=== PATIENT | female | born 1980 | race Caucasian/White ===

== ENCOUNTER 2017-06-15 13:32 | Emergency (ER) | payer OTHER ==
[~2017-06-15] VITALS: Ht 149.9 cm; Wt 47.6 kg
[~2017-06-15 13:32] MED LIST: ALEVE220 M1 PO; CYCLOBENZAPRINE10 MG PO; DOXYCYCLINE HY100 MG PO; IBUPROFEN600 MG PO; IBUPROFEN800 MG PO; KEFLEX500 MG PO; MACRODANTIN100 MG PO; NAPROXEN500 MG PO; NORCO 5-325 TA1 EACH PO; PEPCID20 MG PO; PERCOCET 5-3251 EACH PO; PROCHLORPERAZIN10 MG PO; PROMETHAZINE HC25 M1 PO; PROMETHAZINE-COD5 ML PO; TRAMADOL HCL50 MG PO; TRAZODONE HCL50 MG PO; ULTRAM50 MG PO; VISTARIL50 MG PO; ZOFRAN ODT4 MG PO; ZOFRAN ODT4 MG SL; ZOFRAN4 MG PO; ZOLOFT100 MG PO; ZOLOFT50 MG PO
== END 2017-06-15 13:48 | disposition home or self-care (01) ==
LOC: ED 13:32
DX: Z00.8 Encounter for other general examination (principal)

== ENCOUNTER 2017-12-11 14:22 | Emergency (ER) | payer OTHER ==
[~2017-12-11] VITALS: Ht 149.9 cm; Wt 47.6 kg
[2017-12-11] MEDS ORDERED: ALEVE220 MG PO (14:35)
--- OUTSIDE RECORDS SUMMARY | 2017-12-11 15:27 | XMS ---
Demographics + + + | Address | [address] | | | [address] | | | [place] [address] | + + + | Preferred Language | Unknown | + + + | Marital Status | Unknown | + + + | Holiness Affiliation | Unknown | + + + | Race | Unknown | + + + | Ethnic Group | Unknown | + + + Author + + + | Author | [facility] | + + + | Organization | [facility] | + + + | Address | [address] | | | [place] [address] | + + + | Phone | | + + + Care Team Providers + + + + | Care Human Resources Compliance Manager Name | Role | Phone | + + + + Unavailable | Unavailable | + + + + PROBLEMS +---------+ + + +--------+ + + | Type | Condition | ICD9-CM | [id number] | Onset | Condition | SNOMED | | | | Code | Code | Dates | Status | Code | +---------+ + + +--------+ + + | Problem | Paresthesi | R20.2 | | | Active | [id number] | | | as in left | | | | | | | | hand | | | | | | +---------+ + + +--------+ + + | Problem | Tobacco | | Z72.0 | | Active | 84542413 | | | abuse | | | | | | +---------+ + + +--------+ + + | Problem | Marijuana | F12.20 | | | Active | | | | dependence | | | | | | +---------+ + + +--------+ + + | Problem | Left | M77.12 | | | Active | [id number] | | | lateral | | | | | [address]93[address] | | | epicondyli | | | | | | | | tis | | | | | | +---------+ + + +--------+ + + | Problem | Bursitis | | M75.52 | | Active | [id number] | | | of | | | | | [address] | | | shoulder, | | | | | | | | left | | | | | | +---------+ + + +--------+ + + | Problem | Intractabl | M79.671 | | | Active | 24204964 | | | e right | | | | | | | | heel pain | | | | | | +---------+ + + +--------+ + + | Problem | Dyslipidem | E78.5 | | | Active | [id number] | | | ia | | | | | | +---------+ + + +--------+ + + | Problem | H/O bee | Z91.030 | | | Active | | | | sting | | | | | | | | allergy | | | | | | +---------+ + + +--------+ + + | Problem | Depression | | F41.8 | | Active | [id number] | | | with | | | | | | | | anxiety | | | | | | +---------+ + + +--------+ + + | Problem | Chronic | | G89.4 | | Active | 938512370 | | | pain | | | | | | | | syndrome | | | | | | +---------+ + + +--------+ + + | Problem | Fracture | S92.001G | | | Active | | | | of right | | | | | | | | calcaneus | | | | | | | | with | | | | | | | | delayed | | | | | | | | healing | | | | | | +---------+ + + +--------+ + + ALLERGIES + + + + +--------+ | Substance | Reaction | Event Type | Date | Status | + + + + +--------+ | Penicillin | swelling | Drug Allergy | May, | Active | + + + + +--------+ | Bee Stings | swelling | Non Drug | May, | Active | | | | Allergy | | | + + + + +--------+ SOCIAL HISTORY No smoking Hx information available PLAN OF CARE + +---------+ | Activity | Details | + +---------+ +---+ | | +---+ + + + | Follow Up | prn with your primary care provider | | | Reason:null | + + + VITAL SIGNS + + + + | Height | 59 in | 2017-06-16 | + + + + | Weight | 94.4 lbs | 2017-06-16 | + + + + | BMI | 19.06 kg/m2 | 2017-06-16 | + + + + | Temperature | 97.9 degrees Fahrenheit | 2017-06-16 | + + + + | Heart Rate | 86 /min | 2017-06-16 | + + + + | Blood pressure systolic | 99 mm Hg | 2017-06-16 | + + + + | Blood pressure diastolic | 65 mm Hg | 2017-06-16 | + + + + MEDICATIONS + + + + + + + +--------+ | Medicati | Instruct | Dosage | Frequenc | Start | End Date | Duration | Status | | on | ions | | y | Date | | | | + + + + + + + +--------+ | Aleve | | | | | | | Active | + + + + + + + +--------+ | Ibuprofe | Orally | 1 tablet | 8h | 29 May, | 28 Jun, | 30 | Active | | n 600 MG | Three | | | 2017 | 2017 | day(s) | | | | times a | | | | | | | | | day | | | | | | | + + + + + + + +--------+ | EpiPen | Injectio | as | | 22 Arden, | | | Active | | 2-Keny | n PRN | directed | | 2015 | | | | | 0.3 | | | | | | | | | MG/0.3ML | | | | | | | | + + + + + + + +--------+ | Sertrali | Orally | 1 tablet | 24h | May, | | 30 | Active | | ne HCl | Once a | | | 2016 | | | | | 100 mg | day | | | | | | | + + + + + + + +--------+ RESULTS No Results PROCEDURES + + + + + | Procedure | Date Ordered | Related Diagnosis | Body Site | + + + + + | Est Level III | June 16, 2017 | | | | Intermediate | | | | + + + + + IMMUNIZATIONS No Known Immunizations"
--- OUTSIDE RECORDS SUMMARY | 2017-12-11 15:28 | XMS ---
Demographics + + + | Address | [address] | | | [address] | | | [place] [address] | + + + | Preferred Language | Unknown | + + + | Marital Status | Unknown | + + + | Adventism Affiliation | Unknown | + + + | Race | Unknown | + + + | Ethnic Group | Unknown | + + + Author + + + | Author | [facility] | + + + | Organization | [facility] | + + + | Address | [address] | | | [place] [address] | + + + | Phone | | + + + Care Team Providers + + + + | Care Director Of Research Name | Role | Phone | + + + + Unavailable | Unavailable | + + + + PROBLEMS +---------+ + + +--------+ + + | Type | Condition | ICD9-CM | [id number] | Onset | Condition | SNOMED | | | | Code | Code | Dates | Status | Code | +---------+ + + +--------+ + + | Problem | Paresthesi | R20.2 | | | Active | [id number] | | | as in left | | | | | | | | hand | | | | | | +---------+ + + +--------+ + + | Problem | Tobacco | | Z72.0 | | Active | 25402781 | | | abuse | | | | | | +---------+ + + +--------+ + + | Problem | Marijuana | F12.20 | | | Active | | | | dependence | | | | | | +---------+ + + +--------+ + + | Problem | Left | M77.12 | | | Active | [id number] | | | lateral | | | | | [address] | | | epicondyli | | | | | | | | tis | | | | | | +---------+ + + +--------+ + + | Problem | Bursitis | | M75.52 | | Active | [id number] | | | of | | | | | [address] | | | shoulder, | | | | | | | | left | | | | | | +---------+ + + +--------+ + + | Problem | Intractabl | M79.671 | | | Active | 66979453 | | | e right | | | | | | | | heel pain | | | | | | +---------+ + + +--------+ + + | Problem | Dyslipidem | E78.5 | | | Active | 772715955 | | | ia | | | [...] | | F41.8 | | Active | 811200531 | | | with | | | | | | | | anxiety | | | | | | +---------+ + + +--------+ + + | Problem | Chronic | | G89.4 | | Active | [id number] | | | pain | | | [...] +---------+ + + +--------+ + + ALLERGIES Unknown Allergies SOCIAL HISTORY No smoking Hx information available PLAN OF CARE VITAL SIGNS MEDICATIONS Unknown Medications RESULTS No Results PROCEDURES No Known procedures IMMUNIZATIONS No Known Immunizations"
[2017-12-11] MEDS ORDERED: PROTONIX40 MG PO (15:30)
[2017-12-11] MEDS ORDERED: KETOROLAC TROME10 MG PO (15:30)
== END 2017-12-11 15:40 | disposition home or self-care (01) ==
LOC: ED 14:22
DX: R10.9 Unspecified abdominal pain (principal); F17.200 Nicotine dependence, unspecified, uncomplicated; Z98.51 Tubal ligation status; Z90.89 Acquired absence of other organs; Z88.0 Allergy status to penicillin; Z88.8 Allergy status to other drugs, medicaments and biological substances
CPT/HCPCS: 80053; 81001; 82150; 83690; 84703; 85025; 96374; 96375; 99283; J1885; J2405

== ENCOUNTER 2018-01-23 12:26 | Emergency (ER) | payer OTHER ==
[~2018-01-23] VITALS: Ht 149.9 cm; Wt 47.6 kg
--- OUTSIDE RECORDS SUMMARY | ~2018-01-23 | XMS ---
Demographics + + + | Address | [address] | | | [address] | | | [place] [address] | + + + | Preferred Language | Unknown | + + + | Marital Status | Unknown | + + + | Faith Affiliation | Unknown | + + + | Race | Unknown | + + + | Ethnic Group | Unknown | + + + Author + + + | Author | [facility] | + + + | Organization | [facility] | + + + | Address | [address] | | | [place] [address] | + + + | Phone | | + + + Care Team Providers + + + + | Care Folded Cloth Taper Name | Role | Phone | + + + + Unavailable | Unavailable | + + + + PROBLEMS +---------+ + + +--------+ + + | Type | Condition | ICD9-CM | [id number] | Onset | Condition | SNOMED | | | | Code | Code | Dates | Status | Code | +---------+ + + +--------+ + + | Problem | Paresthesi | R20.2 | | | Active | [id number] | | | as in left | | | | | | | | hand | | | | | | +---------+ + + +--------+ + + | Problem | Tobacco | | Z72.0 | | Active | 72902598 | | | abuse | | | | | | +---------+ + + +--------+ + + | Problem | Marijuana | F12.20 | | | Active | | | | dependence | | | | | | +---------+ + + +--------+ + + | Problem | Left | M77.12 | | | Active | [id number] | | | lateral | | | | | [address] | | | epicondyli | | | | | | | | tis | | | | | | +---------+ + + +--------+ + + | Problem | Bursitis | | M75.52 | | Active | [id number] | | | of | | | | | [address] | | | shoulder, | | | | | | | | left | | | | | | +---------+ + + +--------+ + + | Problem | Dyslipidem | E78.5 | | | Active | 735343611 | | | ia | | | | | | +---------+ + + +--------+ + + | Problem | Pain in | | M79.671 | | Active | [id number] | | | right foot | | | | | [address] | +---------+ + + +--------+ + + | Problem | H/O bee | Z91.030 | | | Active | | | | sting | | | | | | | | allergy | | | | | | +---------+ + + +--------+ + + | Problem | Depression | | F41.8 | | Active | 710316014 | | | with | | | | | | | | anxiety | | | | | | +---------+ + + +--------+ + + | Problem | Chronic | | G89.4 | | Active | 407106698 | | | pain | | | [...]
--- OUTSIDE RECORDS SUMMARY | ~2018-01-23 | XMS ---
Demographics + + + | Address | [address] | | | [address] | | | [place] [address] | + + + | Preferred Language [...] | + + + | Organization | [facility] | + + + | Address | [address] | | | [place] [address] | + + + | Phone | | + + + Care Team Providers + + + + | Care Production Supervisor Off Shift Name | Role | Phone | + + + + Unavailable | Unavailable | + + + + PROBLEMS +---------+ + + +--------+ + + | Type | Condition | ICD9-CM | [id number] | Onset | Condition | SNOMED | | | | Code | Code | Dates | Status | Code | +---------+ + + +--------+ + + | Problem | Paresthesi | R20.2 | | | Active | [id number] | | | as in left | | | | | | | | hand | | | | | | +---------+ + + +--------+ + + | Problem | Tobacco | | Z72.0 | | Active | 79252562 | | | abuse | | | | | | +---------+ + + +--------+ + + | Problem | Marijuana | F12.20 | | | Active | | | | dependence | | | | | | +---------+ + + +--------+ + + | Problem | Left | M77.12 | | | Active | [id number] | | | lateral | | | | | [address] | | | epicondyli | | | | | | | | tis | | | | | | +---------+ + + +--------+ + + | Problem | Bursitis | | M75.52 | | Active | [id number] | | | of | | | | | [address] | | | shoulder, | | | | | | | | left | | | | | | +---------+ + + +--------+ + + | Problem | Dyslipidem | E78.5 | | | Active | 034747463 | | | ia | | | | | | +---------+ + + +--------+ + + | Problem | Pain in | | M79.671 | | Active | [id number] | | | right foot | | | | | [address]112[address] | +---------+ + + +--------+ + + | Problem | H/O bee | Z91.030 | | | Active | | | | sting | | | | | | | | allergy | | | | | | +---------+ + + +--------+ + + | Problem | Depression | | F41.8 | | Active | 158714737 | | | with | | | | | | | | anxiety | | | | | | +---------+ + + +--------+ + + | Problem | Chronic | | G89.4 | | Active | 372456013 | | | pain | | | [...]
--- OUTSIDE RECORDS SUMMARY | ~2018-01-23 | XMS ---
Demographics + + + | Address | [address] | | | [address] | | | [place] [address] | + + + | Preferred Language | Unknown | + + + | Marital Status | Unknown | + + + | Episcopal Affiliation | Unknown | + + + | Race | Unknown | + + + | Ethnic Group | Unknown | + + + Author + + + | Author | [facility] | + + + | Organization | [facility] | + + + | Address | [address] | | | [place] [address] | + + + | Phone | | + + + Care Team Providers + + + + | Care Client Engagement Manager Name | Role | Phone | + + + + Unavailable | Unavailable | + + + + PROBLEMS + + + + + + + + | Type | Condition | ICD9-CM | [id number] | Onset | Condition | SNOMED | | | | Code | Code | Dates | Status | Code | + + + + + + + + | Problem | Paresthesi | R20.2 | | | Active | 29802770 | | | as in left | | | | | | | | hand | | | | | | + + + + + + + + | Problem | Tobacco | | Z72.0 | | Active | 30760550 | | | abuse | | | | | | + + + + + + + + | Problem | Marijuana | F12.20 | | | Active | | | | dependence | | | | | | + + + + + + + + | Problem | Dyslipidem | E78.5 | | | Active | 145269025 | | | ia | | | | | | + + + + + + + + | Problem | Pain in | | M79.671 | | Active | [id number] | | | right foot | | | | | [address] | + + + + + + + + | Problem | H/O bee | Z91.030 | | | Active | | | | sting | | | | | | | | allergy | | | | | | + + + + + + + + | Problem | Depression | | F41.8 | | Active | 028881274 | | | with | | | | | | | | anxiety | | | | | | + + + + + + + + | Problem | Chronic | | G89.4 | | Active | 642867424 | | | pain | | | | | | | | syndrome | | | | | | + + + + + + + + | Problem | Fracture | S92.001G | | | Active | | | | of right | | | | | | | | calcaneus | | | | | | | | with | | | | | | | | delayed | | | | | | | | healing | | | | | | + + + + + + + + | Assessment | Depression | | F41.8 | Jan, | Active | [id number] | | | with | | | 2016 | | | | | anxiety | | | | | | + + + + + + + + | Assessment | Dyslipidem | E78.5 | | 31 Jan, | Active | 795617327 | | | ia | | | 2016 | | | + + + + + + + + | Problem | Left | M77.12 | | | Active | 0342099534 | | | lateral | | | | | [address] | | | epicondyli | | | | | | | | tis | | | | | | + + + + + + + + | Assessment | Knee pain | | M25.569 | Jan, | Active | 84538231 | | | | | | 2017 | | | + + + + + + + + | Problem | Bursitis | | M75.52 | | Active | [id number] | | | of | | | | | [address] | | | shoulder, | | | | | | | | left | | | | | | + + + + + + + + ALLERGIES + + + + +--------+ | Substance | Reaction | Event Type | Date | Status | + + + + +--------+ | Penicillin | swelling | Drug Allergy | Jan, | Active | + + + + +--------+ | Bee Stings | swelling | Non Drug | 31 Jan, 2017 | Active | | | | Allergy | | | + + + + +--------+ SOCIAL HISTORY No smoking Hx information available PLAN OF CARE VITAL SIGNS + + + + | Height | 59 in | 2017-02-16 | + + + + | Weight | 103.8 lbs | 2017-02-16 | + + + + | BMI | 20.96 kg/m2 | 2017-02-16 | + + + + | Temperature | 98.3 degrees Fahrenheit | 2017-02-16 | + + + + | Heart Rate | 71 /min | 2017-02-16 | + + + + | Blood pressure systolic | 107 mm Hg | 2017-02-16 | + + + + | Blood pressure diastolic | 74 mm Hg | 2017-02-16 | + + + + MEDICATIONS + + + + + + + +--------+ | Medicati | Instruct | Dosage | Frequenc | Start | End Date | Duration | Status | | on | ions | | y | Date | | | | + + + + + + + +--------+ | EpiPen | Injectio | as | | 22 Apr, | | | Active | | 2-Keny | n PRN | directed | | 2015 | | | | | 0.3 | | | | | | | | | MG/0.3ML | | | | | | | | + + + + + + + +--------+ | Sertrali | Orally | 1 tablet | 24h | | | 30 | Active | | ne HCl | Once a | | | | | day(s) | | | 100 mg | day | | | | | | | + + + + + + + +--------+ RESULTS No Results PROCEDURES + + + + + | Procedure | Date Ordered | Related Diagnosis | Body Site | + + + + + | Est Level III | February 16, 2017 | | | | Intermediate | | | | + + + + + | DSCHRG MED/CURRENT | February 16, 2017 | | | | MED MERGE | | | | + + + + + | DOC MEDS VERIFIED | February 16, 2017 | | | | W/PT OR RE | | | | + + + + + IMMUNIZATIONS No Known Immunizations"
--- OUTSIDE RECORDS SUMMARY | ~2018-01-23 | XMS ---
Demographics + + + | Address | [address] | | | [address] | | | [place] [address] | + + + | Preferred Language | Unknown | + + + | Marital Status | Unknown | + + + | Adventist Affiliation | Unknown | + + + | Race | Unknown | + + + | Ethnic Group | Unknown | + + + Author + + + | Author | [facility] | + + + | Organization | [facility] | + + + | Address | [address] | | | [place] [address] | + + + | Phone | | + + + Care Team Providers + + + + | Care Calender Let Off Helper Name | Role | Phone | + + + + Unavailable | Unavailable | + + + + PROBLEMS +---------+ + + +--------+ + + | Type | Condition | ICD9-CM | [id number] | Onset | Condition | SNOMED | | | | Code | Code | Dates | Status | Code | +---------+ + + +--------+ + + | Problem | Paresthesi | R20.2 | | | Active | 91090977 | | | as in left | | | | | | | | hand | | | | | | +---------+ + + +--------+ + + | Problem | Tobacco | | Z72.0 | | Active | 36784443 | | | abuse | | | | | | +---------+ + + +--------+ + + | Problem | Marijuana | F12.20 | | | Active | | | | dependence | | | | | | +---------+ + + +--------+ + + | Problem | Left | M77.12 | | | Active | [id number] | | | lateral | | | | | [address] | | | epicondyli | | | | | | | | tis | | | | | | +---------+ + + +--------+ + + | Problem | Bursitis | | M75.52 | | Active | [id number] | | | of | | | | | [address] | | | shoulder, | | | | | | | | left | | | | | | +---------+ + + +--------+ + + | Problem | Intractabl | M79.671 | | | Active | 05052909 | | | e right | | | | | | | | heel pain | | | | | | +---------+ + + +--------+ + + | Problem | Dyslipidem | E78.5 | | | Active | 458796030 | | | ia | | | [...] | | F41.8 | | Active | 245523311 | | | with | | | | | | | | anxiety | | | | | | +---------+ + + +--------+ + + | Problem | Chronic | | G89.4 | | Active | 390375043 | | | pain | | | [...] Penicillin | swelling | Drug Allergy | Jun, | Active | + + + + +--------+ | Bee Stings | swelling | Non Drug | Jun, | Active | | | | Allergy | | | + + + + +--------+ SOCIAL HISTORY No smoking Hx information available PLAN OF CARE + +---------+ | Activity | Details | + +---------+ +---+ | | +---+ + + + | Follow Up | prn foot not improving Reason:null | + + + VITAL SIGNS + + + + | Height | 59 in | 2017-06-22 | + + + + | Weight | 97 lbs | 2017-06-22 | + + + + | BMI | 19.59 kg/m2 | 2017-06-22 | + + + + | Temperature | 98.1 degrees Fahrenheit | 2017-06-22 | + + + + | Heart Rate | 87 /min | 2017-06-22 | + + + + | Blood pressure systolic | 106 mm Hg | 2017-06-22 | + + + + | Blood pressure diastolic | 74 mm Hg | 2017-06-22 | + + + + MEDICATIONS + + + + + + + +--------+ | Medicati | Instruct | Dosage | Frequenc | Start | End Date | Duration | Status | | on | ions | | y | Date | | | | + + + + + + + +--------+ | Sertrali | Orally | 1 tablet | 24h | 28 Kulwinder, | | 30 | Active | | ne HCl | Once a | | | 2017 | | | | | 100 mg [...] 600 MG | Three | | | 2016 | 2016 | day(s) | | | | times a | | | | | | | | | day | | | | | | | + + + + + + + +--------+ | EpiPen | Injectio | as | | Apr, | | | Active | | [...] + + | Est Level III | Jun 22, 2017 | | | | Intermediate | | | | + + + + + | DSCHRG MED/CURRENT | Jun 22, 2017 | | | | MED MERGE | | | | + + + + + | DOC MEDS VERIFIED | Jun 22, 2017 | | | | W/PT OR RE | | | | + + + + + IMMUNIZATIONS No Known Immunizations"
[~2018-01-23 12:26] MED LIST changes: +ALEVE220 MG PO; +KETOROLAC TROME10 MG PO; +PROTONIX40 MG PO
[2018-01-23] MEDS ORDERED: TAMIFLU75 MG PO (14:04)
== END 2018-01-23 14:22 | disposition home or self-care (01) ==
LOC: ED 12:26
DX: J10.1 Influenza due to other identified influenza virus with other respiratory manifestations (principal); F17.200 Nicotine dependence, unspecified, uncomplicated; Z88.0 Allergy status to penicillin; Z88.1 Allergy status to other antibiotic agents; Z88.8 Allergy status to other drugs, medicaments and biological substances; Z79.899 Other long term (current) drug therapy
CPT/HCPCS: 80053; 81001; 85025; 87502; 96374; 96376; 99283; J2405; J7030

== ENCOUNTER 2019-03-11 07:47 | Emergency (ER) | payer OTHER ==
[~2019-03-11] VITALS: Ht 149.9 cm; Wt 47.6 kg
[~2019-03-11 07:47] MED LIST changes: +TAMIFLU75 MG PO
[2019-03-11] MEDS ORDERED: DOXYCYCLINE HY100 MG PO (08:36)
[2019-03-11] MEDS ORDERED: G TUSSIN AC LI473 ML PO (08:36)
[2019-03-11] MEDS ORDERED: VENTOLIN HFA18 GM INH (08:36)
== END 2019-03-11 08:50 | disposition home or self-care (01) ==
LOC: ED 07:47
DX: J40 Bronchitis, not specified as acute or chronic (principal); F17.200 Nicotine dependence, unspecified, uncomplicated; Z90.89 Acquired absence of other organs; Z88.0 Allergy status to penicillin; Z88.1 Allergy status to other antibiotic agents; Z88.8 Allergy status to other drugs, medicaments and biological substances
CPT/HCPCS: 71045; 99283-25

== ENCOUNTER 2019-10-04 12:48 | Emergency (ER) | payer OTHER ==
[~2019-10-04] VITALS: Ht 149.9 cm; Wt 45.4 kg
[~2019-10-04 12:48] MED LIST changes: +EPIPEN 2-P0.3 MG/0.3 IM; +G TUSSIN AC LI473 ML PO; +GABAPENTIN300 MG PO; +ONDANSETRON ODT8 MG PO; +VENTOLIN HFA18 GM INH
--- OUTSIDE RECORDS SUMMARY | 2019-10-04 12:52 | XMS ---
PreManage Notification: JÚNIOR CASTORENA Security Intelligence Officer Events No recent Security Events currently on file CRITERIA MET - [facility] - Has Care Guidelines CARE PROVIDERS KELLE COLIN Nurse Practitioner: Family 06/19/2019-Current PHONE: Unknown Alma Rosa has no Care Guidelines for this patient. Care History Medical/Surgical 06/19/2019 [facility] - Patient is currently established with [facility]. If patient is seen in the ED during business hours. Please contact CHWs at [facility]. Care Recommendation: This patient has had 5 or more Emergency Department visits in the last 12 months.\T\nbsp; Patient requires education on the scope and purpose of the ED as an acute care provider not a Primary Care Provider and should not be utilized for chronic conditions.\T\nbsp; These are guidelines and the provider should exercise clinical judgment when providing care. E.D. VISIT COUNT ([address] [facility] TOTAL 3 NOTE: Visits indicate total known visits. ED/UCC VISIT TRACKING (12 MO.) 10/04/2019 12:49 [facility] TYPE: Emergency COMPLAINT: - HAND PAIN/ NUMBNESS 06/19/2019 06:10 [facility] TYPE: Emergency COMPLAINT: - ABD PAIN,VOMITING DIAGNOSES: - Lower abdominal pain, unspecified - Vomiting, unspecified - Nicotine dependence, unspecified, uncomplicated - Allergy status to oth drug/meds/biol subst status - Allergy status to other antibiotic agents status - Other mcc (current) drug therapy - Allergy status to penicillin 03/11/2019 07:[address] [facility] [place] TYPE: Emergency COMPLAINT: - COLD SYMPTOMS DIAGNOSES: - Acute pharyngitis, unspecified - Bronchitis, not specified as acute or chronic - Nicotine dependence, unspecified, uncomplicated - Allergy status to oth drug/meds/biol subst status - Allergy status to penicillin - Acquired absence of other organs - Allergy status to other antibiotic agents status INPATIENT VISIT TRACKING (12 MO.) No inpatient visits to display in this time frame [id number]
[2019-10-04] MEDS ORDERED: INDOMETHACIN50 MG PO (13:43)
== END 2019-10-04 13:51 | disposition home or self-care (01) ==
LOC: ED 12:48
DX: M79.642 Pain in left hand (principal); M79.641 Pain in right hand; G89.29 Other chronic pain; F17.200 Nicotine dependence, unspecified, uncomplicated; Z88.0 Allergy status to penicillin; Z88.1 Allergy status to other antibiotic agents; Z88.8 Allergy status to other drugs, medicaments and biological substances; Z79.899 Other long term (current) drug therapy
CPT/HCPCS: 99283

== ENCOUNTER 2019-10-25 20:48 | Emergency (ER) | payer OTHER ==
[~2019-10-25] VITALS: Ht 149.9 cm; Wt 40.8 kg
[~2019-10-25 20:48] MED LIST changes: +INDOMETHACIN50 MG PO
--- OUTSIDE RECORDS SUMMARY | 2019-10-25 20:50 | XMS ---
PreManage Notification: JÚNIOR CASTORENA Security Fire Medic Events No recent Security Events currently on file CRITERIA MET - [facility] - Has Care Guidelines - [facility] - 2 Visits in 30 Days CARE PROVIDERS KELLE COLIN Nurse Practitioner: Family 06/19/2019-Current PHONE: Unknown Alma Rosa has no Care Guidelines for this patient. Care History Medical/Surgical 06/19/2019 [facility] - Patient is currently established with [facility]. If patient is seen in the ED during business hours. Please contact CHWs at [facility]. Care Recommendation: This patient has had [...] providing care. E.D. VISIT COUNT (12 MO.) 4 [facility] TOTAL 4 NOTE: Visits indicate total known visits. ED/UCC VISIT TRACKING (12 MO.) 10/25/2019 20:49 [facility] TYPE: Emergency COMPLAINT: - PAIN IN HANDS 10/04/2019 12:49 [facility] TYPE: Emergency COMPLAINT: - HAND PAIN DIAGNOSES: - Other label pinker (current) drug therapy - Other chronic pain - Allergy status to penicillin - Pain in right hand - Nicotine dependence, unspecified, uncomplicated - Allergy status to oth drug/meds/biol subst status - Allergy status to other antibiotic agents status - Pain in left hand 06/19/2019 06:10 [facility] TYPE: Emergency COMPLAINT: - ABD PAIN,VOMITING DIAGNOSES: - Lower abdominal pain, unspecified - Vomiting, unspecified - Nicotine dependence, unspecified, uncomplicated - Allergy status to oth drug/meds/biol subst status - Allergy status to other antibiotic agents status - Other label pinker (current) drug therapy - Allergy status to penicillin 03/11/2019 07:47 [facility] TYPE: Emergency COMPLAINT: - COLD SYMPTOMS [...] visits to display in this time frame [id number]
== END 2019-10-25 22:37 | disposition home or self-care (01) ==
LOC: ED 20:48
DX: M25.531 Pain in right wrist (principal); M25.532 Pain in left wrist; G89.29 Other chronic pain; F17.200 Nicotine dependence, unspecified, uncomplicated; Z88.0 Allergy status to penicillin; Z88.8 Allergy status to other drugs, medicaments and biological substances; Z88.1 Allergy status to other antibiotic agents; Z79.899 Other long term (current) drug therapy
CPT/HCPCS: 99283

== ENCOUNTER 2019-12-01 06:11 | Emergency (ER) | payer OTHER ==
[~2019-12-01] VITALS: Ht 149.9 cm; Wt 40.8 kg
--- OUTSIDE RECORDS SUMMARY | 2019-12-01 06:14 | XMS ---
PreManage Notification: JÚNIOR CASTORENA Security Senior Financial Reporting Analyst Events No recent Security Events currently on file CRITERIA MET - [facility] - Has Care Guidelines CARE PROVIDERS ZACH COLIN Nurse Practitioner: Family 06/19/2019-Current PHONE: Unknown Alma Rosa has no Care Guidelines for this patient. Care History Medical/Surgical 10/27/2019 [facility] Left voicemail with patient advising use of walk in clinic for non life threatening health matters.\T\nbsp; Advised patient she needs current PCP as she has not seen Zach Colin in over a year. 06/19/2019 [facility] - Patient is currently established with [facility]. If patient is seen in the ED during business hours. Please contact CHWs at [facility]. Care Recommendation: This patient has had [...] providing care. E.D. VISIT COUNT (12 MO.) [address] [facility] TOTAL 5 NOTE: Visits indicate total known visits. ED/UCC VISIT TRACKING (12 MO.) 12/01/2019 06:12 [facility] TYPE: Emergency COMPLAINT: - VOMITING, WEAKNESS 10/25/2019 20:49 [facility] TYPE: Emergency COMPLAINT: - PAIN IN HANDS DIAGNOSES: - Allergy status to penicillin - Allergy status to oth drug/meds/biol subst status - Nicotine dependence, unspecified, uncomplicated - Pain in left wrist - Other alf (current) drug therapy - Pain in right wrist - Allergy status to other antibiotic agents status - Other chronic pain 10/04/2019 12:49 [facility] TYPE: Emergency COMPLAINT: - HAND PAIN DIAGNOSES: - Other alf (current) drug therapy - Other chronic pain [...] to other antibiotic agents status - Other parts counterman (current) drug therapy - Allergy status to [...] visits to display in this time frame [id number]
[2019-12-01] MEDS ORDERED: VISTARIL50 MG PO (06:24)
[2019-12-01] MEDS ORDERED: ZOFRAN4 MG PO (09:45)
== END 2019-12-01 11:35 | disposition home or self-care (01) ==
LOC: ED 06:11
DX: R10.84 Generalized abdominal pain (principal); E16.2 Hypoglycemia, unspecified; F17.200 Nicotine dependence, unspecified, uncomplicated; Z88.0 Allergy status to penicillin; Z88.1 Allergy status to other antibiotic agents; Z88.8 Allergy status to other drugs, medicaments and biological substances; Z79.899 Other long term (current) drug therapy
CPT/HCPCS: 74177; 80053; 81001; 82010; 82803; 83605; 83690; 84703; 85025; 96361; 99284-25; J1170; J1885; J2405; J7030; J7121; Q9967

== ENCOUNTER 2020-02-01 16:40 | Emergency (ER) | payer OTHER ==
[~2020-02-01] VITALS: Ht 149.9 cm; Wt 41.3 kg
--- OUTSIDE RECORDS SUMMARY | 2020-02-01 16:42 | XMS ---
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 Care History Medical/Surgical 12/02/2019 [facility] Patient seen in ED before clinic open.\T\nbsp; Patient will schedule follow up with Zach Colin. 10/27/2019 [facility] Left voicemail with patient advising use of walk in clinic for non life threatening health matters.\T\nbsp; Advised patient she needs current PCP as she has not seen Zach Colin in over a year. 06/19/2019 [facility] - Patient is currently established with [facility]. If patient is seen in the ED during business hours. Please contact [facility]Ws at [facility]. Care Recommendation: This patient has had [...] providing care. E.D. VISIT COUNT (12 MO.) [address] [facility] TOTAL 6 NOTE: Visits indicate total known visits. ED/UCC VISIT TRACKING (12 MO.) 02/01/2020 16:40 [facility] TYPE: Emergency COMPLAINT: - SINUS PROBLEM 12/01/2019 06:12 [facility] TYPE: Emergency COMPLAINT: - VOMITING, WEAKNESS DIAGNOSES: - Nicotine dependence, unspecified, uncomplicated - Allergy status to other antibiotic agents status - Allergy status to oth drug/meds/biol subst status - Generalized abdominal pain - Other longterm (current) drug therapy - Allergy status to penicillin - Unspecified abdominal pain - Hypoglycemia, unspecified 10/25/2019 20:49 [facility] TYPE: Emergency COMPLAINT: - PAIN IN HANDS DIAGNOSES: - Allergy status to penicillin - Allergy status to oth drug/meds/biol subst status - Nicotine dependence, unspecified, uncomplicated - Pain in left wrist - Other superintendent container terminal (current) drug therapy - Pain in right wrist - Allergy status to other antibiotic agents status - Other chronic pain 10/04/2019 12:49 [facility] TYPE: Emergency COMPLAINT: - HAND PAIN DIAGNOSES: - Other superintendent container terminal (current) drug therapy - Other chronic pain [...] to other antibiotic agents status - Other superintendent container terminal (current) drug therapy - Allergy status to [...] visits to display in this time frame [email or web address]
== END 2020-02-01 19:45 | disposition home or self-care (01) ==
LOC: ED 16:40
DX: J01.90 Acute sinusitis, unspecified (principal); F17.200 Nicotine dependence, unspecified, uncomplicated; Z88.0 Allergy status to penicillin; Z88.1 Allergy status to other antibiotic agents; Z88.8 Allergy status to other drugs, medicaments and biological substances; Z79.899 Other long term (current) drug therapy
CPT/HCPCS: 99283

== ENCOUNTER 2020-05-06 00:48 | Emergency (ER) | payer OTHER ==
[~2020-05-06] VITALS: Ht 149.9 cm; Wt 41.3 kg
--- OUTSIDE RECORDS SUMMARY | 2020-05-06 00:50 | XMS ---
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 Care History Medical/Surgical 12/02/2019 [facility] Patient seen in ED before clinic open.\T\nbsp; Patient will schedule follow up with Zach Colin. 10/27/2019 [facility] Left voicemail with patient advising use of walk in clinic for non life threatening health matters.\T\nbsp; Advised patient she needs current PCP as she has not seen Zach Colin in over a year. 06/19/2019 [facility] - Patient is currently established with [...] known visits. ED/UCC VISIT TRACKING (12 MO.) 05/06/2020 00:48 [facility] TYPE: Emergency COMPLAINT: - LT AND RT ARM PAIN 02/01/2020 16:40 [facility] TYPE: Emergency COMPLAINT: - SINUS PROBLEM DIAGNOSES: - Allergy status to penicillin - Other shelter (current) drug therapy - Allergy status to other antibiotic agents status - Allergy status to other drugs, medicaments and biological sub - Cough - Nicotine dependence, unspecified, uncomplicated - Acute sinusitis, unspecified 12/01/2019 06:12 [facility] TYPE: Emergency COMPLAINT: - VOMITING, WEAKNESS DIAGNOSES: - Nicotine dependence, unspecified, uncomplicated - Allergy status to other antibiotic agents status - Allergy status to other drugs, medicaments and biological sub - Generalized abdominal pain - Other shelter (current) drug therapy - Allergy status to penicillin - Unspecified abdominal pain - Hypoglycemia, unspecified 10/25/2019 20:49 [facility] TYPE: Emergency COMPLAINT: - PAIN IN HANDS DIAGNOSES: - Allergy status to penicillin - Allergy status to other drugs, medicaments and biological sub - Nicotine dependence, unspecified, uncomplicated - Pain in left wrist - Other shelter (current) drug therapy - Pain in right wrist - Allergy status to other antibiotic agents status - Other chronic pain 10/04/2019 12:49 [facility] TYPE: Emergency COMPLAINT: - HAND PAIN DIAGNOSES: - Other shelter (current) drug therapy - Other chronic pain - Allergy status to penicillin - Pain in right hand - Nicotine dependence, unspecified, uncomplicated - Allergy status to other drugs, medicaments and biological sub - Allergy status to other antibiotic agents status - Pain in left hand 06/19/2019 06:[address] [facility] [place] TYPE: Emergency COMPLAINT: - ABD PAIN,VOMITING DIAGNOSES: - Lower abdominal pain, unspecified - Vomiting, unspecified - Nicotine dependence, unspecified, uncomplicated - Allergy status to other drugs, medicaments and biological sub - Allergy status to other antibiotic agents status - Other shelter (current) drug therapy - Allergy status to penicillin INPATIENT VISIT TRACKING (12 MO.) No inpatient visits to display in this time frame [id number]
== END 2020-05-06 01:26 | disposition home or self-care (01) ==
LOC: ED 00:48
DX: M79.601 Pain in right arm (principal); M79.602 Pain in left arm; F17.200 Nicotine dependence, unspecified, uncomplicated; Z88.0 Allergy status to penicillin; Z88.8 Allergy status to other drugs, medicaments and biological substances; Z79.899 Other long term (current) drug therapy
CPT/HCPCS: 99283

== ENCOUNTER 2020-10-18 10:39 | Emergency (ER) | payer OTHER ==
[~2020-10-18] VITALS: Ht 149.9 cm; Wt 41.3 kg
--- OUTSIDE RECORDS SUMMARY | 2020-10-18 10:42 | XMS ---
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 Care History Medical/Surgical 05/06/2020 [facility] No contact with patient via phone - phone restrictions.\T\nbsp; Emailed patient to re-establish care with PCP in Clinic.\T\nbsp; Patient was last seen in Walk In Clinic on 04/01/2020 with Marisela Looney. 12/02/2019 [facility] Patient seen in ED before clinic open.\T\nbsp; Patient will schedule follow up with Zach Colin. 10/27/2019 [facility] Left voicemail with patient advising use of walk in clinic for non life threatening health matters.\T\nbsp; Advised patient she needs current PCP as she has not seen Zach Colin in over a year. E.D. VISIT COUNT (12 MO.) [address] [facility] TOTAL 5 NOTE: Visits indicate total known visits. ED/UCC VISIT TRACKING (12 MO.) 10/18/2020 10:39 [facility] TYPE: Emergency COMPLAINT: - BILAT HAND PAIN/SWELLING/BURNING SENSATION 05/06/2020 00:48 [facility] TYPE: Emergency COMPLAINT: - LT AND RT ARM PAIN DIAGNOSES: - Pain in right arm - Nicotine dependence, unspecified, uncomplicated - Allergy status to other drugs, medicaments and biological substances - Allergy status to penicillin - Pain in left arm - Other care home (current) drug therapy 02/01/2020 16:40 [facility] TYPE: Emergency COMPLAINT: - SINUS PROBLEM DIAGNOSES: - Allergy status to penicillin - Other care home (current) drug therapy - Allergy status to other antibiotic agents - Allergy status to other drugs, medicaments and biological substances - Cough - Nicotine dependence, unspecified, uncomplicated - Acute sinusitis, unspecified 12/01/2019 06:12 [facility] TYPE: Emergency COMPLAINT: - VOMITING, WEAKNESS DIAGNOSES: - Nicotine dependence, unspecified, uncomplicated - Allergy status to other antibiotic agents - Allergy status to other drugs, medicaments and biological substances - Generalized abdominal pain - Other intermediate card tender (current) drug therapy - Allergy status to penicillin - Unspecified abdominal pain - Hypoglycemia, unspecified 10/25/2019 20:49 [facility] TYPE: Emergency COMPLAINT: - PAIN IN HANDS DIAGNOSES: - Allergy status to penicillin - Allergy status to other drugs, medicaments and biological substances - Nicotine dependence, unspecified, uncomplicated - Pain in left wrist - Other care home (current) drug therapy - Pain in right wrist - Allergy status to other antibiotic agents - Other chronic pain INPATIENT VISIT TRACKING (12 MO.) No inpatient visits to display in this time frame [id number]
[2020-10-18] MEDS ORDERED: IBUPROFEN800 MG PO (10:53)
== END 2020-10-18 17:30 | disposition left against medical advice (07) ==
LOC: ED 10:39
DX: Z53.21 Procedure and treatment not carried out due to patient leaving prior to being seen by health care provider (principal)

== ENCOUNTER 2020-10-28 07:08 | Emergency (ER) | payer OTHER ==
[~2020-10-28] VITALS: Ht 149.9 cm; Wt 41.3 kg
--- OUTSIDE RECORDS SUMMARY | 2020-10-28 07:10 | XMS ---
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 Care History Medical/Surgical 05/06/2020 [facility] No contact with patient via phone - phone restrictions.\T\nbsp; Emailed patient to re-establish care with PCP in Clinic.\T\nbsp; Patient was last seen in Walk In Clinic on 04/01/2020 with Marisela Looney. 12/02/2019 [facility] Patient seen in ED before clinic open.\T\nbsp; Patient will schedule follow up with Zach Colin. 10/27/2019 [facility] Left voicemail with patient advising use of walk in clinic for non life threatening health matters.\T\nbsp; Advised patient she needs current PCP as she has not seen Zach Colin in over a year. E.D. VISIT COUNT (12 MO.) [address] [facility] TOTAL 5 NOTE: Visits indicate total known visits. ED/UCC VISIT TRACKING (12 MO.) 10/28/2020 07:09 [facility] TYPE: Emergency COMPLAINT: - LOWER BACK PAIN, INJ 10/18/2020 10:39 [facility] TYPE: Emergency COMPLAINT: - BILAT HAND PAIN/NON INJURY DIAGNOSES: - Procedure and treatment not carried out due to patient leaving prior to being seen by health care provider 05/06/2020 00:48 [facility] TYPE: Emergency COMPLAINT: - LT AND RT ARM PAIN DIAGNOSES: - Pain in right arm - Nicotine dependence, unspecified, uncomplicated - Allergy status to other drugs, medicaments and biological substances - Allergy status to penicillin - Pain in left arm - Other alf (current) drug therapy 02/01/2020 16:40 [facility] TYPE: Emergency COMPLAINT: - SINUS PROBLEM DIAGNOSES: - Allergy status to penicillin - Other alf (current) drug therapy - Allergy status to [...] substances - Generalized abdominal pain - 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
[2020-10-28] MEDS ORDERED: PREDNISONE20 MG PO (08:20)
== END 2020-10-28 08:36 | disposition home or self-care (01) ==
LOC: ED 07:08
DX: S39.012A Strain of muscle, fascia and tendon of lower back, initial encounter (principal); X50.9XXA Other and unspecified overexertion or strenuous movements or postures, initial encounter; Y99.0 Civilian activity done for income or pay; F17.200 Nicotine dependence, unspecified, uncomplicated; Z88.0 Allergy status to penicillin; Z88.8 Allergy status to other drugs, medicaments and biological substances; Z88.1 Allergy status to other antibiotic agents; Z79.899 Other long term (current) drug therapy
CPT/HCPCS: 72100; 99283-25; J7512

== ENCOUNTER 2020-12-19 13:23 | Emergency (ER) | payer OTHER ==
[~2020-12-19] VITALS: Ht 149.9 cm; Wt 40.8 kg
[~2020-12-19 13:23] MED LIST changes: +PREDNISONE20 MG PO
--- OUTSIDE RECORDS SUMMARY | 2020-12-19 13:26 | XMS ---
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 CRITERIA MET - [facility] - Has Care Guidelines CARE PROVIDERS ZACH COLIN Nurse Practitioner: Family 06/19/2019-Current PHONE: [phone] Alma Rosa has no Care Guidelines for this patient. Care History Medical/Surgical 05/06/2020 [facility] No contact with patient via phone - phone restrictions.\T\nbsp; Emailed patient to re-establish care with PCP in Clinic.\T\nbsp; Patient was last seen in Walk In Clinic on 04/01/2020 with Marisela Looney. 12/02/2019 [facility] Patient seen in ED before clinic open.\T\nbsp; Patient will schedule follow up with Zach Colin. 10/27/2019 [facility] Left voicemail with patient advising use of walk in clinic for non life threatening health matters.\T\nbsp; Advised patient she needs current PCP as she has not seen Zach Colin in over a year. E.D. VISIT COUNT (12 MO.) 5 [facility] TOTAL 5 NOTE: Visits indicate total known visits. ED/UCC VISIT TRACKING (12 MO.) 12/19/2020 13:24 [facility] TYPE: Emergency COMPLAINT: - FALL, R SIDE RIB PAIN 10/28/2020 07:09 [facility] TYPE: Emergency COMPLAINT: - LOWER BACK PAIN, INJ DIAGNOSES: - Civilian activity done for income or pay - Allergy status to other drugs, medicaments and biological substances - Allergy status to penicillin - Allergy status to other antibiotic agents - Other and unspecified overexertion or strenuous movements or postures, initial encounter - Allergy status to other drugs, medicaments and biological substances - Other filler leaf cutter long (current) drug therapy - Strain of muscle, fascia and tendon of lower back, initial encounter - Nicotine dependence, unspecified, uncomplicated - Low back pain - Allergy status to other antibiotic agents 10/18/2020 10:39 [facility] TYPE: Emergency [...] - Pain in left arm - Other group home (current) drug therapy 02/01/2020 16:40 [facility] TYPE: Emergency COMPLAINT: - SINUS PROBLEM DIAGNOSES: - Allergy status to penicillin - Other filler leaf cutter long (current) drug therapy - Allergy status to other antibiotic agents - Allergy status to other drugs, medicaments and biological substances - Cough - Nicotine dependence, unspecified, uncomplicated - Acute sinusitis, unspecified INPATIENT VISIT TRACKING (12 MO.) No inpatient visits to display in this time frame [id number]
[2020-12-19] MEDS ORDERED: HYDROCODON-ACE1 EA10 PO (14:24)
== END 2020-12-19 15:04 | disposition home or self-care (01) ==
LOC: ED 13:23
DX: S20.211A Contusion of right front wall of thorax, initial encounter (principal); W01.198A Fall on same level from slipping, tripping and stumbling with subsequent striking against other object, initial encounter; Z88.0 Allergy status to penicillin; Z88.8 Allergy status to other drugs, medicaments and biological substances; Z88.1 Allergy status to other antibiotic agents; Z79.899 Other long term (current) drug therapy
CPT/HCPCS: 71101; 99283-25

== ENCOUNTER 2021-03-04 20:07 | Emergency (ER) | payer OTHER ==
[~2021-03-04] VITALS: Ht 149.9 cm; Wt 40.8 kg
[~2021-03-04 20:07] MED LIST changes: +HYDROCODON-ACE1 EA10 PO
--- OUTSIDE RECORDS SUMMARY | 2021-03-04 20:10 | XMS ---
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 10/18/2020 10:39 - Other Details: PATIENT LWBS. CRITERIA MET - [facility] - Has Care Guidelines CARE PROVIDERS ZACH COLIN Nurse Practitioner: Family 06/19/2019-Current PHONE: [phone] Alma Rosa has no Care Guidelines for this patient. Care History Medical/Surgical 05/06/2020 [facility] No contact with patient via phone - phone restrictions.\T\nbsp; Emailed patient to re-establish care with PCP in Clinic.\T\nbsp; Patient was last seen in Walk In Clinic on 04/01/2020 with Marisela Looney. 12/02/2019 [facility] Patient seen in ED before clinic open.\T\nbsp; Patient will schedule follow up with Zach Colin. 10/27/2019 [facility] Left voicemail with patient advising use of walk in clinic for non life threatening health matters.\T\nbsp; Advised patient she needs current PCP as she has not seen Zach Colin in over a year. E.D. VISIT COUNT (12 MO.) 5 [facility] TOTAL 5 NOTE: Visits indicate total known visits. ED/UCC VISIT TRACKING (12 MO.) 03/04/2021 20:08 [facility] TYPE: Emergency COMPLAINT: - R ARM/SHOULDER PAIN 12/19/2020 13:24 [facility] TYPE: Emergency COMPLAINT: - FALL, R SIDE RIB PAIN DIAGNOSES: - Other senior living (current) drug therapy - Fall on same level from slipping, tripping and stumbling with subsequent striking against other object, initial encounter - Allergy status to other drugs, medicaments and biological substances - Pleurodynia - Contusion of right front wall of thorax, initial encounter - Allergy status to penicillin - Allergy status to other antibiotic agents 10/28/2020 07:09 [facility] TYPE: Emergency [...] drugs, medicaments and biological substances - Other senior living (current) drug therapy - Strain of muscle, [...] - Pain in left arm - Other superintendent marine oil terminal (current) drug therapy INPATIENT VISIT TRACKING (12 MO.) No inpatient visits to display in this time frame [id number]
[2021-03-04] MEDS ORDERED: DICLOFENAC SODI75 MG PO (23:08)
[2021-03-04] MEDS ORDERED: CYCLOBENZAPRINE10 MG PO (23:09)
== END 2021-03-04 23:43 | disposition home or self-care (01) ==
LOC: ED 20:07
DX: M77.8 Other enthesopathies, not elsewhere classified (principal); F17.200 Nicotine dependence, unspecified, uncomplicated; Z88.0 Allergy status to penicillin; Z88.8 Allergy status to other drugs, medicaments and biological substances; Z88.1 Allergy status to other antibiotic agents; Z79.899 Other long term (current) drug therapy
CPT/HCPCS: 73030; 99283-25

== ENCOUNTER 2021-10-04 17:26 | Emergency (ER) | payer OTHER ==
[~2021-10-04] VITALS: Ht 149.9 cm; Wt 40.8 kg
[~2021-10-04 17:26] MED LIST changes: +DICLOFENAC SODI75 MG PO
--- OUTSIDE RECORDS SUMMARY | 2021-10-04 17:34 | XMS ---
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 CRITERIA MET - [facility] - Has Care Guidelines CARE PROVIDERS ZACH COLIN Nurse Practitioner: Family 06/19/2019-Current PHONE: [phone] Alma Rosa has no Care Guidelines for this patient. Care History Medical/Surgical 05/06/2020 [facility] No contact with patient via phone - phone restrictions.\T\nbsp; Emailed patient to re-establish care with PCP in Clinic.\T\nbsp; Patient was last seen in Walk In Clinic on 04/01/2020 with Marisela Looney. 12/02/2019 [facility] Patient seen in ED before clinic open.\T\nbsp; Patient will schedule follow up with Zach Colin. 10/27/2019 [facility] Left voicemail with patient advising use of walk in clinic for non life threatening health matters.\T\nbsp; Advised patient she needs current PCP as she has not seen Zach Colin in over a year. E.D. VISIT COUNT (12 MO.) 5 [facility] TOTAL 5 NOTE: Visits indicate total known visits. ED/UCC VISIT TRACKING (12 MO.) 10/04/2021 17:27 [facility] TYPE: Emergency COMPLAINT: - VOMITING 03/04/2021 20:08 [facility] TYPE: Emergency COMPLAINT: - R ARM/SHOULDER PAIN/NO INJ DIAGNOSES: - Other enthesopathies, not elsewhere classified - Allergy status to other antibiotic agents - Allergy status to other drugs, medicaments and biological substances - Pain in right shoulder - Allergy status to penicillin - Other exterminator helper (current) drug therapy - Nicotine dependence, unspecified, uncomplicated 12/19/2020 13:24 [facility] TYPE: Emergency COMPLAINT: - FALL, R SIDE RIB PAIN DIAGNOSES: - Other exterminator helper (current) drug therapy - Fall on same [...] drugs, medicaments and biological substances - Other exterminator helper (current) drug therapy - Strain of muscle, [...] to being seen by health care provider INPATIENT VISIT TRACKING (12 MO.) No inpatient visits to display in this time frame [id number]
[2021-10-04] MEDS ORDERED: CAPSAICIN60 GM TOP (23:13)
[2021-10-04] MEDS ORDERED: ONDANSETRON ODT4 MG PO (23:13)
--- NOTE | 2021-10-05 07:21 | EKG ---
[facility] [address] [place], [place] [address] Signed Normal sinus rhythm Normal ECG No previous ECGs available Confirmed by LEISA ROBERSON MD ([id number]) on 10/05/2021 7:21:37 AM Electronically Signed By: LEISA ROBERSON MD 10/05/21720 PATIENT NAME: JÚNIOR CASTORENA Electrocardiogram DATE OF : 76 PHYSICIAN: LEISA ROBERSON MD REPORT #: [id number] REPORT IS CONFIDENTIAL AND NOT TO BE RELEASED WITHOUT AUTHORIZATION
== END 2021-10-04 23:30 | disposition home or self-care (01) ==
LOC: ED 17:26
DX: R11.2 Nausea with vomiting, unspecified (principal); R10.31 Right lower quadrant pain; Z86.19 Personal history of other infectious and parasitic diseases; F17.200 Nicotine dependence, unspecified, uncomplicated; Z88.0 Allergy status to penicillin; Z88.1 Allergy status to other antibiotic agents; Z88.8 Allergy status to other drugs, medicaments and biological substances; Z79.899 Other long term (current) drug therapy
CPT/HCPCS: 74177; 80053; 81001; 83735; 84703; 85025; 93005; 93010; 96375; 99284-25; J1790; J2405; J7040; J7121

== ENCOUNTER 2021-10-06 17:02 | Emergency (ER) | payer OTHER ==
[~2021-10-06] VITALS: Ht 149.9 cm; Wt 40.9 kg
[~2021-10-06 17:02] MED LIST changes: +CAPSAICIN60 GM TOP; +ONDANSETRON ODT4 MG PO
--- OUTSIDE RECORDS SUMMARY | 2021-10-06 17:08 | XMS ---
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 CRITERIA MET - [facility] - Has Care Guidelines - [facility] - 2 Visits in 30 Days CARE PROVIDERS ZACH COLIN Nurse Practitioner: Family 06/19/2019-Current PHONE: [phone] Alma Rosa has no Care Guidelines for this patient. Care History Medical/Surgical 05/06/2020 [facility] No contact with patient via phone - phone restrictions.\T\nbsp; Emailed patient to re-establish care with PCP in Clinic.\T\nbsp; Patient was last seen in Walk In Clinic on 04/01/2020 with Marisela Looney. 12/02/2019 [facility] Patient seen in ED before clinic open.\T\nbsp; Patient will schedule follow up with Zach Colin. 10/27/2019 [facility] Left voicemail with patient advising use of walk in clinic for non life threatening health matters.\T\nbsp; Advised patient she needs current PCP as she has not seen Zach Colin in over a year. E.D. VISIT COUNT (12 MO.) 6 [facility] TOTAL 6 NOTE: Visits indicate total known visits. ED/UCC VISIT TRACKING (12 MO.) 10/06/2021 17:02 [facility] TYPE: Emergency COMPLAINT: - VOMITING 10/04/2021 17:27 [facility] TYPE: Emergency COMPLAINT: - VOMITING 03/04/2021 20:08 [facility] TYPE: Emergency COMPLAINT: - R ARM/SHOULDER PAIN/NO INJ DIAGNOSES: - Other enthesopathies, not elsewhere classified - Allergy status to other antibiotic agents - Allergy status to other drugs, medicaments and biological substances - Pain in right shoulder - Allergy status to penicillin - Other terminal carman (current) drug therapy - Nicotine dependence, unspecified, uncomplicated 12/19/2020 13:24 [facility] TYPE: Emergency COMPLAINT: - FALL, R SIDE RIB PAIN DIAGNOSES: - Other terminal carman (current) drug therapy - Fall on same [...] drugs, medicaments and biological substances - Other fci (current) drug therapy - Strain of muscle, [...] visits to display in this time frame [email or web address]
[2021-10-06] MEDS ORDERED: PEPCID20 MG PO (22:15)
[2021-10-06] MEDS ORDERED: MAALOX ADVANCE1 EACH PO (22:15)
--- NOTE | 2021-10-08 14:58 | EKG ---
[facility] [address] [place], [place] [address] Signed Sinus bradycardia with short IN Otherwise normal ECG When compared with ECG of 04-OCT-2021 21:11, No significant change was found Confirmed by SHAKIRA GUTIERREZ MD ([id number]) on 10/08/2021 2:58:22 PM Electronically Signed By: SHAKIRA GUTIERREZ MD 10/08/21 1458 PATIENT NAME: JÚNIOR CASTORENA Electrocardiogram DATE OF : 76 PHYSICIAN: SHAKIRA GUTIERREZ MD REPORT #: [id number] REPORT IS CONFIDENTIAL AND NOT TO BE RELEASED WITHOUT AUTHORIZATION
== END 2021-10-06 23:31 | disposition home or self-care (01) ==
LOC: ED 17:02
DX: R10.12 Left upper quadrant pain (principal); R10.13 Epigastric pain; R11.2 Nausea with vomiting, unspecified; R07.89 Other chest pain; F17.200 Nicotine dependence, unspecified, uncomplicated; Z86.19 Personal history of other infectious and parasitic diseases; Z90.89 Acquired absence of other organs; Z88.0 Allergy status to penicillin; Z88.1 Allergy status to other antibiotic agents; Z88.8 Allergy status to other drugs, medicaments and biological substances; Z79.899 Other long term (current) drug therapy
CPT/HCPCS: 71046; 80053; 81001; 83690; 83735; 84484; 84703; 85025; 93005; 93010; 96374; 96375; 99284-25; G0480; J1790; J7121

== ENCOUNTER 2022-10-04 13:49 | Emergency (ER) | payer OTHER ==
[~2022-10-04] VITALS: Ht 149.9 cm; Wt 44.5 kg
[~2022-10-04 13:49] MED LIST changes: +MAALOX ADVANCE1 EACH PO
[2022-10-04] MEDS ORDERED: NEURONTIN100 MG PO (14:51)
== END 2022-10-04 15:00 | disposition home or self-care (01) ==
LOC: ED 13:49
DX: T23.242A Burn of second degree of multiple left fingers (nail), including thumb, initial encounter (principal); T31.0 Burns involving less than 10% of body surface; F17.200 Nicotine dependence, unspecified, uncomplicated; Z88.0 Allergy status to penicillin; Z88.1 Allergy status to other antibiotic agents; Z79.899 Other long term (current) drug therapy
CPT/HCPCS: 99283

== ENCOUNTER 2023-09-26 11:55 | Emergency (ER) | payer OTHER | END 2023-09-26 16:00 | disposition home or self-care (01) | LOC: ED 11:55 | DX: J20.9 Acute bronchitis, unspecified (principal); F17.200 Nicotine dependence, unspecified, uncomplicated; Z88.0 Allergy status to penicillin; Z88.1 Allergy status to other antibiotic agents; Z20.822 Contact with and (suspected) exposure to COVID-19 ==

== ENCOUNTER 2023-11-05 12:08 | Emergency (ER) | payer OTHER ==
[~2023-11-05] VITALS: Ht 149.9 cm; Wt 44.9 kg
[~2023-11-05 12:08] MED LIST changes: +NEURONTIN100 MG PO; +ZITHROMAX250 MG PO
[2023-11-05] MEDS ORDERED: DOXYCYCLINE HY100 M3 PO (13:51)
[2023-11-05 14:02] VITALS: BP 149/89
== END 2023-11-05 14:03 | disposition home or self-care (01) ==
LOC: ED 12:08
DX: L02.01 Cutaneous abscess of face (principal); F17.200 Nicotine dependence, unspecified, uncomplicated; Z88.0 Allergy status to penicillin; Z88.1 Allergy status to other antibiotic agents
CPT/HCPCS: 10060; 99282-25

== ENCOUNTER 2025-08-25 10:23 | Emergency (ER) | payer SELFPAY ==
[~2025-08-25] VITALS: Ht 149.9 cm; Wt 37.1 kg
[~2025-08-25 10:23] MED LIST changes: +DOXYCYCLINE HY100 M3 PO; +ONDANSETRON ODT4 MG SL
[2025-08-25] MEDS ORDERED: ALEVE220 M1 (11:24)
[2025-08-25] MEDS ORDERED: ONDANSETRON 4 MG TAB ODT SL ONE (11:30)
[2025-08-25] MEDS ORDERED: IBUPROFEN 600 MG TAB PO ONE (11:30)
[2025-08-25] MEDS ORDERED: ACETAMINOPHEN 500 MG TAB PO ONE (11:30)
[2025-08-25 12:27] VITALS: BP 104/78
== END 2025-08-25 12:28 | disposition home or self-care (01) ==
LOC: ED 10:23
DX: M25.511 Pain in right shoulder (principal); F17.200 Nicotine dependence, unspecified, uncomplicated; Z88.0 Allergy status to penicillin; Z88.1 Allergy status to other antibiotic agents
CPT/HCPCS: 73030; 99283; A9270

== ENCOUNTER 2025-09-01 15:50 | Emergency (ER) | payer OTHER ==
[~2025-09-01] VITALS: Ht 149.9 cm; Wt 39.6 kg
[~2025-09-01 15:50] MED LIST changes: +ALEVE220 M1
[2025-09-01] MEDS ORDERED: ACETAMINOPHEN 325 MG TAB PO ONE (17:30)
[2025-09-01 17:31] VITALS: BP 106/66
== END 2025-09-01 17:30 | disposition home or self-care (01) ==
LOC: ED 15:50
DX: S60.221A Contusion of right hand, initial encounter (principal); S60.211A Contusion of right wrist, initial encounter; F17.200 Nicotine dependence, unspecified, uncomplicated; Z88.0 Allergy status to penicillin; Z88.1 Allergy status to other antibiotic agents; W50.0XXA Accidental hit or strike by another person, initial encounter
CPT/HCPCS: 73130; 99283; A9270